=== PATIENT | female | born 1940 | race Caucasian/White ===

== ENCOUNTER → 2017-04-24 | Outpatient (CLI) | payer MEDICARE, BC ==
[~2017-04-24] MED LIST: OMNIPAQUE 350 MG/ML, 100ML BOTTLE ONE
== END | disposition home or self-care (01) ==
LOC: CFH 13:16
PROVIDERS: ATTEND Surgery
DX: K42.9 Umbilical hernia without obstruction or gangrene (principal); K57.30 Diverticulosis of large intestine without perforation or abscess without bleeding; I70.0 Atherosclerosis of aorta; M51.36 Other intervertebral disc degeneration, lumbar region; M51.37 Other intervertebral disc degeneration, lumbosacral region; M85.88 Other specified disorders of bone density and structure, other site; Z90.49 Acquired absence of other specified parts of digestive tract; Z90.710 Acquired absence of both cervix and uterus
CPT/HCPCS: 74177; Q9967

== ENCOUNTER 2017-06-08 08:44 | Day surgery (SDC) | payer MEDICARE, BC ==
[2017-05-27 13:01] VITALS: BP 158/91
[~2017-06-08] VITALS: Ht 163.8 cm; Wt 72.9 kg
[~2017-06-08 08:44] MED LIST changes: +ATOR20TA9 PO; +CHOL100011 PO; +DILT120C75 PO; +LEVO50TA5 PO; +LISI-167 PO; -OMNIPAQUE 350 MG/ML, 100ML BOTTLE ONE; +SERT50TA5 PO
[2017-06-08] MEDS ORDERED: LACTATED RINGERS 1,000 ML IV SCH (09:19)
[2017-06-08 09:21] VITALS: BP 158/91
[2017-06-08] MEDS ORDERED: LIDOCAINE 1%, 2ML SQ PRN (09:30)
[2017-06-08] MEDS ORDERED: BUPIVACAINE/PF 0.5% ONE (12:03)
[2017-06-08] MEDS ORDERED: EPINEPHRINE 1 MG/ML, 1ML ONE (12:03)
[2017-06-08] MEDS ORDERED: FENTANYL PF 100 MCG/2ML ONE ×2 (12:10→13:24)
[2017-06-08] MEDS ORDERED: ONDANSETRON 2MG/ML, 2ML ONE (12:20)
[2017-06-08] MEDS ORDERED: SUCCINYLCHOLINE 20 MG/ML, 10ML ONE (12:20)
[2017-06-08] MEDS ORDERED: PROPOFOL 10 MG/ML, 20ML ONE (12:20)
[2017-06-08] MEDS ORDERED: CEFAZOLIN 1,000 MG ONE (12:20)
[2017-06-08] MEDS ORDERED: DEXAMETHASONE 4 MG/ML, 1ML ONE (12:20)
[2017-06-08] MEDS ORDERED: HYDROmorphone 1 MG/ML, 1ML IV PRN (13:00)
[2017-06-08] MEDS ORDERED: OXYcodone 5 MG/5 ML ORAL.SOL UDC PO PRN (13:00)
[2017-06-08] MEDS ORDERED: EPHEDRINE 50 MG/ML, 1ML IVPush PRN (13:00)
[2017-06-08] MEDS ORDERED: ONDANSETRON 2MG/ML, 2ML IVPush PRN (13:00)
[2017-06-08] MEDS ORDERED: MIDAZOLAM 1 MG/ML, 2ML IV PRN (13:00)
[2017-06-08] MEDS ORDERED: ACETAMINOPHEN 325 MG TABLET PO PRN (13:00)
[2017-06-08] MEDS ORDERED: ACETAMINOPHEN 650 MG/20.3 ML UDC ONE (13:24)
[2017-06-08] MEDS ORDERED: OXYcodone 5 MG/5 ML ORAL.SOL UDC ONE (13:24)
[2017-06-08] MEDS: FENTANYL PF 100 MCG/2ML IV PRN ×3 (13:30→13:47)
[2017-06-08] MEDS ORDERED: HYDROmorphone 1 MG/ML, 1ML ONE (13:54)
== END 2017-06-08 17:55 ==
LOC: OUT 08:44
PROVIDERS: ATTEND Surgery
DX: K43.2 Incisional hernia without obstruction or gangrene (principal); E78.5 Hyperlipidemia, unspecified; I10 Essential (primary) hypertension; G62.9 Polyneuropathy, unspecified; Z87.39 Personal history of other diseases of the musculoskeletal system and connective tissue; Z90.49 Acquired absence of other specified parts of digestive tract; Z98.890 Other specified postprocedural states; Z90.710 Acquired absence of both cervix and uterus
CPT/HCPCS: 49560; 49568; C1729; C1781; J0171; J0330; J0690; J1100; J1170; J2405; J2704; J3010; J3490

== ENCOUNTER 2017-06-09 21:15 | Emergency (ER) | payer MEDICARE, BC ==
[~2017-06-09] VITALS: Ht 162.6 cm; Wt 71.8 kg
[2017-06-09 22:33] VITALS: BP 155/81
== END 2017-06-09 22:35 | disposition home or self-care (01) ==
LOC: ED 22:29
DX: K91.840 Postprocedural hemorrhage of a digestive system organ or structure following a digestive system procedure (principal); K92.2 Gastrointestinal hemorrhage, unspecified; I10 Essential (primary) hypertension; M19.90 Unspecified osteoarthritis, unspecified site; Z98.890 Other specified postprocedural states; Z90.49 Acquired absence of other specified parts of digestive tract; Z90.710 Acquired absence of both cervix and uterus
CPT/HCPCS: 99281; 99282

== ENCOUNTER 2018-09-29 16:22 | Emergency (ER) | payer MEDICARE, BC ==
[~2018-09-29] VITALS: Ht 162.6 cm; Wt 75.0 kg
[~2018-09-29 16:22] MED LIST changes: +ATOR20TA37 PO; -ATOR20TA9 PO
[2018-09-29 17:17] LABS: BASOPHILS # (AUTO) 0.02 x10^3/uL (0-0.1); BASOPHILS % (AUTO) 0 % (0-1); EOSINOPHILS # (AUTO) 0.26 x10^3/uL (0-0.4); EOSINOPHILS % (AUTO) 2 % (1-7); LYMPHOCYTES # (AUTO) 1.22 x10^3/uL (1-3.4); LYMPHOCYTES % (AUTO) 10 % (22-44); MD NO; MEAN CORPUSCULAR HEMOGLOBIN 31.5 pg (27.0-34.8); MEAN CORPUSCULAR VOLUME 95.5 fL (80-100); MEAN PLATELET VOLUME 7.4 fL (7.4-10.4); MONOCYTES # (AUTO) 0.43 x10^3/uL (0.2-0.8); MONOCYTES % (AUTO) 3 % (2-9); NEUTROPHILS # (AUTO) 10.91 x10^3/uL (1.8-6.8); NEUTROPHILS % (AUTO) 85 % (42-75); PLATELET COUNT 258 x10^3/uL (130-400); RED BLOOD COUNT 4.18 x10^6/uL (3.82-5.3); RED CELL DISTRIBUTION WIDTH 12.9 % (9.6-15.2)
[2018-09-29 17:29] LABS: ALBUMIN 3.7 g/dL (3.4-5.0); ANION GAP 7 mmol/L (5-15); CALCIUM 7.5 mg/dL (8.5-10.1); CHLORIDE 108 mmol/L (98-107)
[2018-09-29 17:32] LABS: ALANINE AMINOTRANSFERASE 33 U/L (12-78); ALKALINE PHOSPHATASE 117 U/L (45-117); BILIRUBIN,TOTAL 0.2 mg/dL (0.2-1.0); CREATININE 1.02 mg/dL (0.55-1.02); TOTAL PROTEIN 6.7 g/dL (6.4-8.2)
--- NOTE | 2018-09-29 18:01 | NUR ---
PT REPORTS CONTINUING CRAMPING, BUT IMPROVING SX. NO N/V. NO FURTHER LOOSE STOOL
--- NOTE | 2018-09-29 18:11 | NUR ---
PT TO CT SCAN
[2018-09-29 18:37] VITALS: BP 150/44
--- NOTE | 2018-09-29 18:37 | NUR ---
PT ASSISTED TO BR. STADY GAIT. LARGE LOOSE STOOL IN COMODE. PT REPORTING SOME IMPROVEMENT OF SX S/P BM. VSS. BACK TO BED.
--- NOTE | 2018-09-29 19:12 | NUR ---
Patient/Caregiver given discharge instructions and they have confirmed that they understand the instructions. Patient ambulatory with steady gait.
== END 2018-09-29 19:13 | disposition home or self-care (01) ==
LOC: ED 18:46
DX: K52.29 Other allergic and dietetic gastroenteritis and colitis (principal)
CPT/HCPCS: 36415; 74021; 74176; 80053; 83690; 85025; 99284

== ENCOUNTER 2019-04-12 10:56 | Outpatient (CLI) | payer MEDICARE, BC ==
[~2019-04-12 10:56] MED LIST changes: -DILT120C75 PO; +DILT120C88 PO; +SERT50TA28 PO; -SERT50TA5 PO
[2019-04-12] MEDS ORDERED: REGADENOSON 0.4 MG/5 ML SYRINGE ONE (16:02)
== END 2019-04-12 23:59 | disposition home or self-care (01) ==
LOC: CFH 10:56
PROVIDERS: ATTEND Internal Medicine Cardiovascular Disease
DX: I08.0 Rheumatic disorders of both mitral and aortic valves (principal); I25.10 Atherosclerotic heart disease of native coronary artery without angina pectoris; I10 Essential (primary) hypertension; E78.5 Hyperlipidemia, unspecified
CPT/HCPCS: 78452; 93017; 93306; A9502; J2785

== ENCOUNTER 2021-06-05 13:02 | Outpatient (CLI) | payer MEDICARE, BC ==
[~2021-06-05 13:02] MED LIST changes: +DILT120C83 PO; -DILT120C88 PO
== END 2021-06-05 23:59 | disposition home or self-care (01) ==
LOC: CFH 13:02
PROVIDERS: ATTEND Internal Medicine Cardiovascular Disease
DX: I08.0 Rheumatic disorders of both mitral and aortic valves (principal); I11.9 Hypertensive heart disease without heart failure; I25.10 Atherosclerotic heart disease of native coronary artery without angina pectoris
CPT/HCPCS: 93306